=== PATIENT | female | born 1950 | race African-American/Black ===

== ENCOUNTER 2017-02-07 19:53 | Emergency (ER) | payer MEDICARE ==
[~2017-02-07 19:53] MED LIST: EPINEPHRINE INJ 1 MG/10 ML DISP.SYRIN ONE
--- NOTE | 2017-02-07 20:26 | ER Document Report ---
ED General - General Stated Complaint: POST ARREST Time Seen by Provider: 02/07/17 20:07 Mode of Arrival: Medic Information source: Patient Notes: 66-year-old female presents in cardiac arrest. Patients called EMS due to the unresponsive episode, this lasted approximately 20 minutes, when EMS arrived patient was awake but there is concerns of constipation for 4 days, on route patient coded chest compressions were started this lasted approximately 20 minutes, spontaneous return of circulation was noted after multiple rounds of epinephrine, however patient again coded in route - HPI Onset: Just prior to arrival Onset/Duration: Sudden Quality of pain: Other Severity: Severe Pain Level: Denies Associated symptoms: Other Exacerbated by: Denies Relieved by: Denies Similar symptoms previously: No Recently seen / treated by doctor: No - Related Data Allergies/Adverse Reactions: No Known Allergies Allergy (Unverified 02/07/17 21:39) Past Medical History - Social History Smoking Status: Never Smoker Cigarette use (# per day): No Chew tobacco use (# tins/day): No Smoking Education Provided: No Family History: Reviewed & Not Pertinent Review of Systems - Review of Systems Notes: PHYSICAL EXAMINATION: GENERAL: Ill-appearing female HEAD: Atraumatic, normocephalic. EYES: Pupils are pinpoint and nonreactive ENT: Nares patent large amount of blood in airway LUNGS: Neymar airway in place breath sounds noted HEART: Patient in PEA ABDOMEN: Distended abdomen Female : deferred Musculoskeletal: No range of motion of extremities NEUROLOGICAL: GCS 3 SKIN: Warm, Dry, normal turgor, no rashes or lesions noted. -: Yes ROS unobtainable due to patient's medical condition Course - Re-evaluation Re-evalutation: 02/07/17 20:25 Sánchez eastman paged for ICU bed 02/08/17 00:08 Upon arrival patient was coded intermittently at 3 separate times, unfortunately every time we had spontaneous return she would bradycardia down and loose pulses. Patient was intubated after Neymar airway was removed when she had the pulses back and I had cold Sánchez Eastman for placement. Unfortunately with in room I did stop coding her as she was no longer responding to medications Procedures - Intubation Orotracheal Time of Intubation: 20:00 Airway evaluation: Copious secretions Mallampati Classification: Class 4 Intubation method: Orotracheal Blade type: Yessenia Blade size: 4 ETT size: 7.0 ETT secured at: Teeth ETT secured at (cm): 22 Breath Sounds after Intubation: Equal End tidal CO2 confirmed: Yes Post Intubation Xray: Yes Intubation Complications: No complications, Other - Large amount of blood in the airway noted Critical Care Note - Critical Care Note Total time excluding time spent on procedures (mins): 75 Comments: 35 minutes of critical care time spent in direct contact evaluating and reevaluating the patient, treating symptoms, reviewing labs and studies and speaking with family and consultants excluding any procedures Discharge - Discharge Clinical Impression: Cardiac arrest, Condition: Critical Disposition:
[2017-02-07] MEDS ORDERED: CALCIUM GLUCONATE 1000 MG/10 ML INJ IV ONE (22:06)
== END 2017-02-07 23:45 | disposition expired ==
LOC: EDBD → ER 19:53
PROC: 0BH17EZ Insertion of Endotracheal Airway into Trachea, Via Natural or Artificial Opening (ICD-10-PCS; principal; 2017-02-07)
DX: I46.9 Cardiac arrest, cause unspecified (principal)
CPT/HCPCS: 31500; J0171; 92950; 96374; 99291; 99292